=== PATIENT | female | born 1945 | race Caucasian/White ===

== ENCOUNTER 2019-01-20 13:17 | Emergency (ER) | payer MEDICARE ==
[2019-01-20] MEDS ORDERED: Tetan/Diph/Pertus SYR(Tdap)* 0.5 ML SYR(BOOSTRIX) use SYR contains LATEX IM ONE (13:50)
[2019-01-20] MEDS ORDERED: Lidocaine/Epineph/Tetraca GEL* 3 ML GEL IN SYR TOPICAL ONE (13:50)
--- NOTE | 2019-01-20 13:52 | UC ---
Laceration HPI - HPI Summary HPI Summary: Patient is a 73-year-old female here with a head injury. Patient was bending down in the refrigerator when she stood up and hit her head on the open freezer door. Patient had no loss of consciousness and has not any blood thinners. Patient is acting appropriately with no vomiting since this episode. This episode occurred 1 hour ago. Patient initially had a large quantity of bleeding for her but that has since stopped. Patient is unsure of her last tetanus shot. Medications reviewed - History Of Current Complaint Chief Complaint: UCLaceration Stated Complaint: HEAD LAC Time Seen by Provider: 01/20/19 13:41 Hx Obtained From: Patient Pain Intensity: 1 - Allergies/Home Medications Allergies/Adverse Reactions: Allergies Allergy/AdvReac Type Severity Reaction Status Date / Time bee venom protein (honey bee) Allergy Anaphylatic Verified 01/20/19 13:38 Shock Penicillins Allergy Hives Verified 01/20/19 13:38 Home Medications: Home Medications Cholecalciferol TAB* [Vitamin D TAB*] 1 dose PO DAILY 01/20/19 [History Confirmed 01/20/19] Cyanocobalamin TAB* [Vitamin B12 TAB*] 500 mcg PO DAILY 01/20/19 [History Confirmed 01/20/19] Estradiol 1 dose PO DAILY 01/20/19 [History Confirmed 01/20/19] Iron 01/20/19 [History Confirmed 01/20/19] Lansoprazole [Prevacid] 15 mg PO DAILY 01/20/19 [History Confirmed 01/20/19] PMH/Surg Hx/FS Hx/Imm Hx Previously Healthy: Yes - Surgical History Surgical History: Yes Surgery Procedure, Year, and Place: cystocele/rectocele repair. parotid gland removed (left). hyterectomy - Family History Known Family History: Positive: Non-Contributory - Social History Alcohol Use: None Substance Use Type: None Smoking Status (MU): Never Smoked Tobacco Review of Systems All Other Systems Reviewed And Are Negative: Yes Constitutional: Negative: Fever, Chills Skin: Negative: Rash Eyes: Negative: Blurred Vision ENT: Negative: Epistaxis, Dental Pain, Nasal Discharge Respiratory: Negative: Cough Cardiovascular: Negative: Palpitations, Chest Pain Gastrointestinal: Negative: Vomiting, Diarrhea Physical Exam - Summary Physical Exam Summary: Vital Signs Reviewed: Yes A+Ox3, no distress Eyes: Conjunctiva Clear, PERRL. EOM intact and full ENT: Hearing grossly normal TM x 2 clear, moist, uvula midline, no exudate, no erythema Neck: Positive: Supple Respiratory: Positive: No respiratory distress, No accessory muscle use + CTA throughout no w/r Cardiovascular: RRR nl s1, s2 no m/r CBT <2 sec abd soft + BS nt/nd no guarding, no distension Musculoskeletal Exam: PERSON x 4 without difficulty Strength Intact, ROM Intact Neurological: Positive: Alert, + sensation throughout Psychological: Positive: Normal Response To Family Skin: 2 cm laceration at the hairline that is midline and linear. No active bleeding Vital Signs: Initial Vital Signs Temp 98.1 F 01/20/19 13:34 Pulse 110 01/20/19 13:34 Resp 18 01/20/19 13:34 BP 161/90 01/20/19 13:34 Pulse Ox 98 01/20/19 13:34 Laceration Repair - Laceration Repair 1 Description: Linear Laceration Size After Repair: Length (cm) - 2 Modified For Repair: No Type Injection: Local - LET Cleansing Completed Via Routine Prep: Yes Irrigation With Pressure Irrigation Device: Yes Closure Material: Sutures Closure Method: Single Layer Suture Of: Skin Suture Type: Prolene - 3 5-0 Laceration Course/Dx - Course/Dx Course Of Treatment: Patient is here with a laceration to her forehead. Patient does not need a CT head per clinical decision making roles and my exam. Patient had repair of her laceration. Patient is given tetanus. - Diagnosis Provider Diagnosis: Laceration of forehead Discharge ED - Sign-Out/Discharge Documenting (check all that apply): Patient Departure All imaging exams completed and their final reports reviewed: No Studies - Discharge Plan Condition: Stable Disposition: HOME Patient Education Materials: Laceration (ED) Referrals: Curtis Hernandez MD [Primary Care Provider] - Additional Instructions: Please return to the emergency Department, urgent care, primary care doctor in 7 -10 days to get your sutures removed Please gently wash your hair Please return if you have us draining from the wound, worsening redness around the wound, or fever - Billing Disposition and Condition Condition: STABLE Disposition: Home
== END 2019-01-20 14:41 | disposition home or self-care (01) ==
LOC: UCEAST 13:17
DX: S01.81XA Laceration without foreign body of other part of head, initial encounter (principal); W22.8XXA Striking against or struck by other objects, initial encounter; Y93.89 Activity, other specified; Y92.000 Kitchen of unspecified non-institutional (private) residence as the place of occurrence of the external cause; Z23 Encounter for immunization; Z88.0 Allergy status to penicillin; Z91.030 Bee allergy status
CPT/HCPCS: 12001; 12011; 90471; 90715; 99211; A9270-GY; G0463